=== PATIENT | female | born 1970 | race Caucasian/White ===

== ENCOUNTER 2016-08-11 10:19 | Observation (INO) ==
[2016-08-11 13:18] LABS: Basophils # (Auto) 0 K/mcL (0.0-0.3); Basophils % (Auto) 0.1 % (0.0-2.0); Eosinophils # (Auto) 0.1 K/mcL (0.0-0.7); Eosinophils % (Auto) 1.2 % (0.0-7.0); Granulocytes % (Auto) 60.9 % (38.0-78.0); Lymphocytes # (Auto) 2.4 K/mcL (1.5-4.8); Lymphocytes % (Auto) 30.2 % (15.5-49.0); Mean Cell Volume 67.2 fL (80.0-100.0); Mean Corpuscular Hemoglobin 17.4 pg (26.0-34.0); Monocytes # (Auto) 0.6 K/mcL (0.1-0.9); Monocytes % (Auto) 7.6 % (1.0-9.0); Platelet Count 241 K/mcL (140-440); RBC 3.86 M/mcL (4.00-5.20); Red Cell Distribution Width 22.6 % (11.5-14.5)
--- NOTE | 2016-08-11 13:35 | Ultrasound Report ---
CLINICAL INFORMATION: Left leg pain and swelling TECHNIQUE: Grayscale and color flow spectral imaging COMPARISON: None. FINDINGS: Left common femoral vein, superficial femoral vein are negative. Greater saphenous vein is negative. Acute deep venous thrombosis within the left popliteal vein and posterior tibial veins. Peroneal veins are patent. IMPRESSION: 1. Acute deep venous thrombosis within the popliteal vein and posterior tibial veins. 2. Negative left common femoral vein and superficial femoral vein. Interpreted and Authenticated by: Romeo Samuels 08/11/16
--- NOTE | 2016-08-11 13:58 | Emergency Department Note ---
Lower Extremity Injury HPI - General Chief Complaint: Extremity Injury, Lower Stated Complaint: L leg swelling Time Seen by Provider: 08/11/16 10:25 Source: patient Mode of arrival: ambulatory Limitations: no limitations - History of Present Illness HPI Narrative: 45-year-old the history of pain in the left lower leg present for the past 2 weeks. denies any shortness of breath. There is no chest pain. She has also been complaining of fatique over the past 6 months. Patient is afebrile - Related Data Home Medications Medication Instructions Recorded Confirmed No Known Home Meds [No Known Home 08/11/16 08/11/16 Meds] Allergies Allergy/AdvReac Type Severity Reaction Status Date / Time Penicillins [PENICILLINS] Allergy Mild RASH Verified 08/11/16 16:40 Sulfa (Sulfonamide Allergy Verified 08/11/16 16:59 Antibiotics) azithromycin AdvReac Mild DIARRHEA Verified 08/11/16 16:40 [From ZITHROMAX Z-BARBARA] Review of Systems All systems ED: reviewed and negative except as stated. Constitutional: Denies: fever Eyes: Denies: eye pain ENT ED: Denies: ear pain Cardiovascular: Denies: chest pain Respiratory: Denies: cough Gastrointestinal: Denies: abdominal pain Genitourinary: Denies: urgency Musculoskeletal: Reports: other (Pain to the left calf). Denies: back pain Integumentary: Denies: rash Neurological: Denies: headache Psychiatric: Denies: anxiety Endocrine: Denies: fatigue Hematological/Lymphatic: Denies: as per HPI Past Medical History - Past Medical History Medical history: Reports: non-contributory Surgical history ED: Reports: other (ovarian cysts, carpal tunnel) Family history: Reports: cancer (he of bone cancer, age 56) - Social History smoking status: Current every day smoker Packs per day: 1 Alcohol use: Reports: Occasionally Drug use: Reports: none Physical Exam - General Limitations: no limitations General appearance: alert - Head Head exam: atraumatic - Eye Eye exam: Present: normal appearance - ENT ENT exam: normal exam - Neck Neck exam: Present: normal inspection, full ROM - Chest Chest inspection: Present: normal inspection - Respiratory Respiratory exam: Present: normal lung sounds bilaterally - Cardiovascular Cardiovascular exam: Present: regular rate, normal rhythm - Abdominal Exam Abdominal exam: Present: soft. Absent: distention, tenderness - Extremities Exam Extremities exam: Present: normal inspection, full ROM - Expanded Lower Extremity Exam Hip/Pelvis exam: Present: normal inspection, full ROM Upper leg exam: Present: normal inspection, full ROM Knee exam: Present: normal inspection, full ROM Lower leg exam: Present: tenderness, Homans' sign (left) - Back Exam Back exam: Present: normal inspection, full ROM - Psychiatric Psychiatric exam: Present: normal affect, normal mood - Skin Skin exam: Present: warm, dry Course Vital Signs Temperature 97.7 F 08/11/16 10:21 Pulse Rate 102 H 08/11/16 10:21 Respiratory Rate 18 08/11/16 10:21 Blood Pressure 134/76 08/11/16 10:21 Pulse Oximetry (%) 100 08/11/16 10:21 Temperature 98.6 F 08/12/16 03:35 Pulse Rate 83 08/12/16 03:35 Respiratory Rate 16 08/12/16 03:35 Blood Pressure 91/60 08/12/16 03:35 Pulse Oximetry (%) 98 08/12/16 07:23 Extremity Injury, Lower - MDM Narrative Medical decision making narrative: positive for dvt, hb 6.8 Dr Moya called and consulted - Lab Data Result diagrams: 08/12/16 05:30 08/12/16 05:30 Lab Results 08/11/16 08/11/16 08/11/16 Range/Units 05:59 12:12 12:12 WBC 7.9 (4.5-11.0) K/mcL RBC 3.86 L (4.00-5.20) M/mcL Hgb 6.7 L* (12.0-15.0) g/dL Hct 25.9 L (36.0-48.0) % POC Hct (36.0-48.0) % MCV 67.2 L (80.0-100.0) fL MCH 17.4 L (26.0-34.0) pg MCHC 26.0 L (31.0-36.0) g/dL RDW 22.6 H (11.5-14.5) % Plt Count 241 (140-440) K/mcL MPV 8.7 (7.4-10.4) fL Gran % 60.9 (38.0-78.0) % Lymph % (Auto) 30.2 (15.5-49.0) % [place] % (Auto) 7.6 (1.0-9.0) % Eos % (Auto) 1.2 (0.0-7.0) % Baso % (Auto) 0.1 (0.0-2.0) % Gran # 4.8 (1.8-8.0) K/mcL Lymph # 2.4 (1.5-4.8) K/mcL [place] # 0.6 (0.1-0.9) K/mcL Eos # 0.1 (0.0-0.7) K/mcL Baso # 0 (0.0-0.3) K/mcL POC PT 12.2 sec POC INR 1.0 (0.9-1.2) POC Sodium (133-145) mmol/L POC Potassium (3.3-5.1) mmol/L POC Chloride (96-108) mmol/L POC Total CO2 (22-30) mmol/L POC BUN (6-20) mg/dl POC Creatinine (0.6-1.1) mg/dl POC Glucose (70-105) mg/dL POC WB Ioniz Calcium (1.16-1.32) mmol/L Iron (37-145) mcg/dl TIBC (228-428) ug/dl Unsat Iron Binding (112-346) mcg/dL Transferrin % Sat (15-50) % Urine HCG, Qual Negative <20 (<20 mIU/ml) 08/11/16 08/11/16 Range/Units 13:43 13:43 WBC (4.5-11.0) K/mcL RBC (4.00-5.20) M/mcL Hgb (12.0-15.0) g/dL Hct (36.0-48.0) % POC Hct 24.0 L (36.0-48.0) % MCV (80.0-100.0) fL MCH (26.0-34.0) pg MCHC (31.0-36.0) g/dL RDW (11.5-14.5) % Plt Count (140-440) K/mcL MPV (7.4-10.4) fL Gran % (38.0-78.0) % Lymph % (Auto) (15.5-49.0) % [place] % (Auto) (1.0-9.0) % Eos % (Auto) (0.0-7.0) % Baso % (Auto) (0.0-2.0) % Gran # (1.8-8.0) K/mcL Lymph # (1.5-4.8) K/mcL [place] # (0.1-0.9) K/mcL Eos # (0.0-0.7) K/mcL Baso # (0.0-0.3) K/mcL POC PT sec POC INR (0.9-1.2) POC Sodium 141 (133-145) mmol/L POC Potassium 3.8 (3.3-5.1) mmol/L POC Chloride 106 (96-108) mmol/L POC Total CO2 24 (22-30) mmol/L POC BUN 7 (6-20) mg/dl POC Creatinine 0.6 (0.6-1.1) mg/dl POC Glucose 80 (70-105) mg/dL POC WB Ioniz Calcium 1.18 (1.16-1.32) mmol/L Iron 15 L TNP (37-145) mcg/dl TIBC 421 (228-428) ug/dl Unsat Iron Binding 406 H (112-346) mcg/dL Transferrin % Sat 3 L (15-50) % Urine HCG, Qual (<20 mIU/ml) Disposition Clinical Impression: Anemia, DVT (deep venous thrombosis) Disposition: Xfer As Outpt/Obs ([facility]) Condition: Undetermined
[2016-08-11] MEDS ORDERED: 0.9 % SODIUM CHLORIDE 250 ML IV SCH ×3 (14:00→16:17)
[2016-08-11] MEDS ORDERED: WARFARIN 5 MG TABLET PO SCH (14:00)
[2016-08-11 14:16] LABS: Iron 15 mcg/dl (37-145); Transferrin % Saturation 3 % (15-50); Unsaturated Iron Binding 406 mcg/dL (112-346)
[2016-08-11] MEDS ORDERED: MAGNESIUM HYDROXIDE 30 ML ORAL.SUSP PO PRN (16:17)
[2016-08-11] MEDS ORDERED: ONDANSETRON ODT 4 MG TABLET SL PRN (16:17)
[2016-08-11] MEDS ORDERED: IRON DEXTRAN 1,000 MG in 0.9 % SODIUM CHLORIDE 500 ML IV ONE (16:17)
[2016-08-11] MEDS ORDERED: ACETAMINOPHEN 325 MG TABLET PO PRN (16:17)
[2016-08-11] MEDS ORDERED: NALOXONE HCL 0.4 MG/ML VIAL IV PRN (16:17)
[2016-08-11] MEDS ORDERED: DOCUSATE SODIUM 100 MG CAPSULE PO PRN (16:17)
[2016-08-11] MEDS ORDERED: CALCIUM CARBONATE 500 MG TAB.CHEW CHEWED PRN (16:17)
[2016-08-11] MEDS ORDERED: IRON DEXTRAN IV ONE (16:17)
[2016-08-11] MEDS ORDERED: SODIUM CHLORIDE 0.9% IV ONE (16:17)
--- NOTE | 2016-08-11 20:04 | Internal Med History&Physical ---
Medical - H&P: HPI Patient information: Note initiated : 08/11/16 at 7:56 pm Service Date, if different from initiated Date: [] Patient: Blanca Sterling 45 y/o F admitted on 08/11/16 for L leg swelling. Chief Complaint: [] History of present illness: Ms. Sterling is a 45 year old female he presents to the emergency room today complaining of pain in her left calf and knee area. She also reported significant ongoing fatigue for about a year now. In the ER sonogram was positive for a left leg DVT. However other labs also showed significant and unexplained anemia. This appears to be an iron deficiency anemia. the patient and her know that she is not feeling well for about a year. She says she was diagnosed with anemia one to 2 years ago and was treated with iron. She does not recall anyone ever checking her stool for blood or sending her to for any surgical workup.he does note that she has had heavy menses most of her life Her periods are now irregular, but they're still quite heavy. She does not currently take iron or any other vitamin supplements. She notes that her leg isn't bothering her for at least several days, and today she says it seemed like it was more swollen and tender to the touch and it felt warm. She has been feeling cold a lot, but is not quite sure if she has chills. She has noted upper respiratory symptoms recently which she blamed on a cold and/or a sinus infection. Her does note that she's had dyspnea with exertion for at least a month if not longer. Otherwise she's not had documented fever She has a mild headache today, but not prior to today. She denies Her ear symptoms. He denies sore throat or cough. She admits to snoring heavily and that her father has sleep apnea. She does continue to smoke, but has been trying to quit. She denies chest pain or palpitations, abdominal pain , nausea or vomiting or diarrhea or heartburn, or bright red blood per rectum. She does note some urinary urge incontinence. past medical history: Heavy menses, which are now irregular. urinary urge incontinence History of pneumonia in 1992 History of an ovarian cyst in the 1980s History of carpal tunnel surgery. Current medications: None. Allergies: Include penicillin, sulfa, azithromycin Family history: Mother of breast cancer and had a history of hypertension. Father had diabetes. Sister has hypertension. Paternal relatives have coronary disease. Next Social history: The patient has smoked on and off since the age of 20, and is currently smoking a half pack of cigarettes per day. She does not use alcohol or drugs. She has one grown child, and she lives with her . I believe she works at [employer]. She denies a sedentary lifestyle. She has not had a primary care physician for about 2 years now. - Medical - H&P: Meds Home Medications Medication Instructions Recorded Confirmed Type No Known Home Meds [No Known Home 08/11/16 08/11/16 History Meds] Allergies Allergy/AdvReac Type Severity Reaction Status Date / Time Penicillins [PENICILLINS] Allergy Mild RASH Verified 08/11/16 16:40 Sulfa (Sulfonamide Allergy Verified 08/11/16 16:59 Antibiotics) azithromycin AdvReac Mild DIARRHEA Verified 08/11/16 16:40 [From ZITHROMAX Z-BARBARA] Medical - H&P: Exam - Constitutional Vitals: Temp Pulse Resp BP Pulse Ox 98.3 F 104 H 16 102/58 97 08/11/16 15:48 08/11/16 15:48 08/11/16 15:48 08/11/16 15:48 08/11/16 15:48 Exam: the patient is a fatigued-appearing overweight white female She is tearful at times. Head: Normocephalic, atraumatic. Eyes: PERRLA, EOMI, anicteric. Ears: TMs and canals are clear. Pharynx: Is markedly crowded. She is missing many of her teeth. Neck: Supple, without lymphadenopathy, thyromegaly, bruits, JVD. Cardiac: Shows regular rate and rhythm, normal S1 and S2, without murmurs, rubs , gallops. Lungs: Are clear to auscultation, without rales, rhonchi, wheezes. abdomen: Is obese, but appears soft and nontender. The patient declined to let me lift her gown, sitting she has sores on her skin that she does not like people to see. Extremities:The left calf may be slightly larger than the right, but I don't see any definite edema or erythema. Her left upper calfand popliteal fossae area are a bit tender. Her Homans sign is probably positive. stool guaiac done in the emergency room was guaiac negative. neurologic:Is grossly nonfocal, although her mood is somewhat labile. Medical - H&P: Reslt - Labs CBC & Chem 7: 08/11/16 12:12 Labs: differential is essentially normal. Pro time is 12, with an INR of 1.0 chemistry panel is notable for normal electrolytes. TIBC is normal at 421, but transferrin saturation is low at 3%. Iron level is markedly low at 15. Urinalysis shows 250 of occult blood, with rare bacteria. lower extremity Doppler shows an acute DVT within the popliteal vein and posterior tibial veins with negative left common femoralvein Medical - H&P: A/P (1) Deep vein thrombosis (DVT) of distal vein of left lower extremity Current visit: Yes Status: Acute (2) Iron deficiency anemia Current visit: Yes Status: Acute (3) At risk for obstructive sleep apnea Current visit: Yes Status: Acute (4) Obesity, morbid, BMI 40.0-49.9 Current visit: Yes Status: Acute (5) Tobacco abuse Current visit: Yes Status: Acute - Narrative A/P Narrative: #1. Vascular. -patient presents with acute left lower extremity DVT. Etiology of this is uncertain, as she denies recent trauma or sedentary lifestyle. -The patient was extremely nervous about starting on blood thinners, so has been admitted to observation. She will be started on full dose subcutaneous Lovenox, as well as oral Coumadin. -We will check with her insurance tomorrow, to see if Eliquis might be covered. The patient would much prefer to have a drug but did not need close monitoring, and also would prefer not to have to use subcutaneous Lovenox injections. -She will need to stay on anticoagulation for at least 3 months. -She will need to be referred to a primary care physician, to follow this, as well as possibly to do further investigation of the cause of her DVT. #2. hematologic. Severe anemia. -this patient presents with significant anemia of uncertain cause. She does report that she was found to be anemic about a year ago, but cannot recall what the workup agrawal. She has never had upper or lower endoscopy or done stool cards to screen for occult blood. She does have a history of heavy menses, and hopefully this is the cause.-She will be transfused tonight, to get her hemoglobin up above 7, as she has been dyspneic lately. -She will also be given IV iron tomorrow. -She needs to start on a multivitamin as well as iron supplementation to support her bone marrow. -she does have a history of a previous ovarian cyst, and unexplained anemia. I will order a pelvic ultrasound to get a better look at her uterus and ovaries. She may need to follow-up with [facility] as well.-If stool guaiacs return to service inspector positive, she will need follow-up with GI as well. -She does have some hematuria tonight, but I suspect that is vaginal contamination. #3. CODE STATUS: Full code. #4.[facility]. Chronic irregular menses. She may need follow-up with [facility]. May be perimenopausal, or or perhaps have polycystic ovarian syndrome, or just have irregular menses due to obesity. 3 #5. Morbid obesity. she does report heavy snoring at night, and also that her father has sleep apnea. I think she is high risk for sleep apnea and this is certainly putting her at risk for other things. I encouraged her, when she gets a new primary care physician, to request a sleep study. #6. Tobacco abuse. -the patient reports that she is trying to quit. She declines a nicotine patch at this time. #7. Chronic fatigue. I suspect this is multifactorial, due to her significant anemia, and obesity. There may be a degree of depression as well. These things should be investigated further by her new primary care physician. this visit took approximately 70 minutes, to review the patient's tset results, review her case with the ER M.D., interview and examine her, and write orders. Medical - H&P: Qual - VTE Deep Vein Thrombosis/Pulmonary Embolism Present on Admission: Yes
[2016-08-11] MEDS: HYDROcodone/APAP 5/325MG TABLET PO PRN (20:20)
[2016-08-11] MEDS: ENOXAPARIN 120 MG/0.8 ML SYRINGE SQ SCH (20:22)
[2016-08-11] MEDS ORDERED: LORazepam 0.5 MG TABLET PO PRN (20:59)
[2016-08-11] MEDS ORDERED: ENOXAPARIN 40 MG/0.4 ML SYRINGE SQ SCH (21:00)
[2016-08-11] MEDS: 0.9 % SODIUM CHLORIDE 10 ML SYRINGE IV SCH (21:00)
[2016-08-12] MEDS: HYDROcodone/APAP 5/325MG TABLET PO PRN (05:07)
[2016-08-12] MEDS: 0.9 % SODIUM CHLORIDE 10 ML SYRINGE IV SCH ×2 (05:13→16:49)
[2016-08-12 08:49] LABS: Basophils # (Auto) 0.1 K/mcL (0.0-0.3); Basophils % (Auto) 1.1 % (0.0-2.0); Eosinophils # (Auto) 0.5 K/mcL (0.0-0.7); Eosinophils % (Auto) 6.5 % (0.0-7.0); Granulocytes % (Auto) 61.2 % (38.0-78.0); Lymphocytes # (Auto) 1.8 K/mcL (1.5-4.8); Lymphocytes % (Auto) 24.3 % (15.5-49.0); Mean Cell Volume 65.4 fL (80.0-100.0); Mean Corpuscular HGB Conc 29.4 g/dL (31.0-36.0); Mean Corpuscular Hemoglobin 19.2 pg (26.0-34.0); Monocytes # (Auto) 0.5 K/mcL (0.1-0.9); Monocytes % (Auto) 6.9 % (1.0-9.0); Platelet Count 214 K/mcL (140-440); Red Cell Distribution Width 22.9 % (11.5-14.5)
[2016-08-12] MEDS ORDERED: PRENATAL VIT/IRON FUMARATE/FA 1 TAB TABLET PO SCH (09:00)
[2016-08-12 09:17] LABS: ALT/SGPT 9 U/l (0-40); Albumin 3.4 gm/dL (3.2-5.2); Alkaline Phosphatase 67 U/L (39-117); Blood Urea Nitrogen 12 mg/dl (6-20)
[2016-08-12] MEDS ORDERED: IRON SUCROSE COMPLEX 400 MG in 0.9 % SODIUM CHLORIDE 250 ML IV ONE (10:00)
[2016-08-12] MEDS ORDERED: APIXABAN 5 MG TABLET PO SCH (12:04)
[2016-08-12] MEDS: ENOXAPARIN 120 MG/0.8 ML SYRINGE SQ SCH (14:02)
--- NOTE | 2016-08-12 15:12 | Discharge Summary ---
Medical - DS: Prov Patient information: Note initiated : 08/12/16 at 3:08 pm Service Date, if different from initiated Date: [] Patient: Blanca Sterling 45 y/o F admitted on 08/11/16 for L Leg Swelling/ Anemia, DVT. Chief Complaint: [] Date of admission: 08/11/16 15:48 Discharge date: 08/12/16 Primary care physician: [to establish care with Dr. Horne] Admitting clinician: Tabby Love Attending physician on discharge: Tabby Love Medical - DS: Meds - Discharge Medications Prescriptions: Apixaban [Eliquis] 5 mg PO BID #74 tablet HYDROcodone/APAP 5/325MG [[place] 5/325Mg] 1 tab PO Q8HP PRN #15 tablet PRN Reason: Pain Vit No.129/Iron/FA [ One Daily Tablet] 1 each PO DAILY #1 tablet Active and Home Medications: Home Medications No Known Home Meds [No Known Home Meds] 08/11/16 [History Confirmed 08/11/16 Last Taken Unknown] Active Medications Acetaminophen (Tylenol) 650 mg PO Q6HP PRN PRN Reason: PAIN/FEVER > 101 Acetaminophen/Hydrocodone Bitart ([place] 5/325mg) 1 tab PO Q4HP PRN PRN Reason: Pain Last Admin: 08/12/16 05:07 Dose: 1 tab Calcium Carbonate/Glycine (Tums) 1,000 mg CHEWED Q4HP PRN PRN Reason: Dyspepsia Docusate Sodium (Colace) 100 mg PO BID PRN PRN Reason: Constipation Lorazepam (Ativan) 0.5 mg PO HSP PRN PRN Reason: ANXIETY/SEDATION Magnesium Hydroxide (Milk Of Magnesia) 30 ml PO DAILYP PRN PRN Reason: Constipation Naloxone HCl (Narcan) 0.1 mg IV Q2MIN PRN PRN Reason: Opiate Reversal Ondansetron HCl (Zofran) 4 mg SL Q6HP PRN PRN Reason: Nausea And Vomiting Prenat Multivit/Refugio/Iron/Folic Ac ( Vitamin) 1 tab PO DAILY OBED Last Admin: 08/12/16 09:55 Dose: 1 tab Sodium Chloride (Saline Flush) 10 ml IV Q8 OBED Last Admin: 08/12/16 05:13 Dose: 10 ml Medical - DS: Hosp Hospital course: Mrs. Sterling is a 45 year old female who presented to the emergency roomyesterday complaining of left leg pain. She was diagnosed with a left distal DVT. She was also diagnosed with severe anemia, of uncertain cause. Iron levels were checked and are extremely low as well. She was admitted to observation, and loaded with Lovenox overnight. Today, case management checked with her insurance and then a couple of pharmacies, and it it appears that the patient's co-pay for taking Eliquis would be less than her co-pay for taking Lovenox plus Coumadin, so Eliquis was started today. The patient is much relieved about this, as she did not want to do the Lovenox injections or the frequent Coumadin monitoring. She will need to follow-up with Dr. Horne later this week, to recheck her hematocrit. -For her anemia, my best guess is that she has iron deficiency related to her heavy menses. However she does know that her menses are very irregular lately, so she is not sure how much she has been bleeding. she has had ongoing fatigue for about a year, and in the setting of unexplained anemia and a history of ovarian cyst, a pelvic ultrasound was ordered for today as well. She was also given IV iron load today. She should have follow-up stool guaiac checks as well. on exam today, the patient is calmer and a little more comfortable. Neck is supple without obvious lymphadenopathy or JVD. Cardiac exam shows regular rate and rhythm. Lungs are clear to auscultation. Abdomen is soft and nontender. Extremities continue to show mild enlargement of the left calf, but no erythema or warmth. #1. Vascular. -patient presents with acute left lower extremity DVT. Etiology of this is uncertain, as she denies recent trauma or sedentary lifestyle. -the patient was started on Eliquis today, and our understanding is through [facility] program at [employer] she can get her medication for a co-pay of $152 a month. She was given her first dose of Eliquis here, and should stay on 10 mg twice a day for one week, and then dropped to 5 mg twice a day. -She should have a follow-up CBC this or next week, to be sure her hemoglobin is stable. -She will need to stay on anticoagulation for at least 3 months. -She will need to be referred to a primary care physician, to follow this, as well as possibly to do further investigation of the cause of her DVT. #2. hematologic. Severe anemia. -this patient presents with significant anemia of uncertain cause. She does report that she was found to be anemic about a year ago, but cannot recall what the workup agrawal. She has never had upper or lower endoscopy or done stool cards to screen for occult blood. She does have a history of heavy menses, and hopefully this is the cause.- -she received 1 unit of packed red blood cells last night, and hemoglobin today is 7.9, with hematocrit 26.8 -he was given 400 mg of IV iron sucrose complex today. -advised her to stay on a vitamin at home, plus iron. -She does have some hematuria As well, but I suspect that is vaginal contamination.that may need to be followed up on again later as well. #3. CODE STATUS: Full code. #4.[employer]. Chronic irregular menses. pelvic ultrasound that came back just now is read as showing enlarged uterus at 13 x 10 x 12.7 cm, and the entire uterus appears abnormal. There is a large complex mass occupying the entire myometrium which was heterogeneous with hypoechoic and hyperechoic areas. There are some vascular areas. Findings may be secondary to a benign leiomyoma but malignancy cannot be excluded. i did discuss this briefly with SALES MARKET LEADER on callDrKehinde Henley, who says she can call his office tomorrow to make an appointment. He thinks he might be able to get her in towards the end of this week. #5. Morbid obesity. she does report heavy snoring at night, and also that her father has sleep apnea. I think she is high risk for sleep apnea and this is certainly putting her at risk for other things. I encouraged her, when she gets a new primary care physician, to request a sleep study. #6. Tobacco abuse. -the patient reports that she is trying to quit. She declines a nicotine patch at this time. #7. Chronic fatigue. I suspect this is multifactorial, due to her significant anemia, and obesity. There may be a degree of depression as well. These things should be investigated further by her new primary care physician. Discharge diagnosis: left lower extremity DVT, severe anemia, uterine mass. - Time Spent with Patient Total time spent providing and/or coordinating discharge services: Greater than 30 minutes Medical - DS: Exam - Constitutional Vitals: Vital Signs Temp Pulse Resp BP BP Pulse Ox 08/12/16 11:33 97.9 F 92 H 16 120/71 97 08/12/16 08:48 97.2 F L 87 18 117/79 97 08/12/16 07:23 98 08/12/16 03:35 98.6 F 83 16 91/60 98 08/11/16 23:49 98.0 F 86 16 106/65 93 08/11/16 18:28 98.0 F 96 H 16 105/65 97 Intake and Output 08/12/16 08/12/16 08/12/16 05:59 13:59 21:59 Intake Total 300 / 300 220 / 220 Output Total 50 / 50 Balance 300 / 300 170 / 170 Intake: Oral 300 / 300 220 / 220 Output: Void Amount 50 / 50 Other: Meal [employer] cup Lunch Percent of Meal Consumed 100% 100% Feeding Ability Independent # Voids 1 1 Medical - DS: Data Labs on day of discharge: Labs from last 24 hours 08/12/16 08/12/16 08/12/16 07:29 07:29 05:30 WBC 7.3 RBC 4.10 Hgb 7.9 L Hct 26.8 L MCV 65.4 L MCH 19.2 L MCHC 29.4 L RDW 22.9 H Plt Count 214 MPV 8.0 Gran % 61.2 Lymph % (Auto) 24.3 [place] % (Auto) 6.9 Eos % (Auto) 6.5 Baso % (Auto) 1.1 Gran # 4.5 Lymph # 1.8 [place] # 0.5 Eos # 0.5 Baso # 0.1 PT INR Sodium 139 Potassium 4.2 Chloride 103 Carbon Dioxide 23 Anion Gap 13.0 BUN 12 Creatinine 0.7 GFR Calculation 106 Glucose 93 Calcium 8.7 Total Bilirubin 0.3 AST 15 ALT 9 Alkaline Phosphatase 67 Total Protein 6.7 Albumin 3.4 Globulin 3.3 Albumin/Globulin Ratio 1.0 TSH 2.36 TNP 08/12/16 08/12/16 08/12/16 05:30 05:30 05:30 WBC TNP RBC TNP Hgb TNP Hct TNP MCV TNP MCH TNP MCHC TNP RDW TNP Plt Count TNP MPV TNP Gran % Lymph % (Auto) [place] % (Auto) Eos % (Auto) Baso % (Auto) Gran # Lymph # [place] # Eos # Baso # PT 14.9 H INR 1.1 Sodium TNP Potassium TNP Chloride TNP Carbon Dioxide TNP Anion Gap Not Reportable BUN TNP Creatinine TNP GFR Calculation Not Reportable Glucose TNP Calcium TNP Total Bilirubin TNP AST TNP ALT TNP Alkaline Phosphatase TNP Total Protein TNP Albumin TNP Globulin TNP Albumin/Globulin Ratio Not Reportable TSH 08/11/16 21:45 WBC RBC Hgb 7.6 L Hct 25.5 L MCV MCH MCHC RDW Plt Count MPV Gran % Lymph % (Auto) [place] % (Auto) Eos % (Auto) Baso % (Auto) Gran # Lymph # [place] # Eos # Baso # PT INR Sodium Potassium Chloride Carbon Dioxide Anion Gap BUN Creatinine GFR Calculation Glucose Calcium Total Bilirubin AST ALT Alkaline Phosphatase Total Protein Albumin Globulin Albumin/Globulin Ratio TSH iron level was low at 15, TIBC normal at 421, iron binding high at 406 , transferrin saturation low at 3% pelvic ultrasound: Urinalysis shows 250 of occult blood, with rare bacteria. lower extremity Doppler shows an acute DVT within the popliteal vein and posterior tibial veins with negative left common femoralvein Medical - DS: A/P - Patient/Caregiver Discharge Instructions Activity: increase activity as tolerated, other (consider staying off here feet and off work until Thursday, August 18, 2016.) Diet: Regular Diet Additional Instructions: #1.Dr Horne to follow pt after her hospital stay, but has not committed to accepting pt as her pcp. #2. Take Eliquis as directed, double dose for the first week, and then drop to 5 mg twice a day. #3. Follow-up with Dr. Horne this week, to recheck hemoglobin and hematocrit and to follow up on DVT. Increase activity as tolerated Consider staying off your feet and off work until 08/18/16 #4. Referral to Dr. Usama Henley, [employer], to f/u uterine mass. Call for appt this week. Prescriptions: Apixaban [Eliquis] 5 mg PO BID #74 tablet HYDROcodone/APAP 5/325MG [[place] 5/325Mg] 1 tab PO Q8HP PRN #15 tablet PRN Reason: Pain Vit No.129/Iron/FA [ One Daily Tablet] 1 each PO DAILY #1 tablet - Problem Maintenance (1) Deep vein thrombosis (DVT) of distal vein of left lower extremity Status: Acute (2) Iron deficiency anemia Status: Acute (3) At risk for obstructive sleep apnea Status: Acute (4) Obesity, morbid, BMI 40.0-49.9 Status: Chronic (5) Tobacco abuse Status: Chronic - Follow up Plan Follow up with: Mauro Horne MD [Physician] - 08/14/16 4:00 pm Usama Henley MD [Physician] - (Call on Thursday to schedule an AUTOMATIC SPINNING LATHE OPERATOR appointment. Tell his scheduling staff that Dr Vega wants to see you on . ) Disposition: Home, Self-Care Prognosis: Good Rehab Potential: Good Overall status at discharge: patient is progressing back to baseline Medical - DS: Qual - VTE Deep Vein Thrombosis/Pulmonary Embolism Present on Admission: Yes
--- NOTE | 2016-08-12 16:23 | Ultrasound Report ---
CLINICAL INFORMATION: Anemia TECHNIQUE: Transabdominal and endovaginal ultrasound. Grayscale and color flow spectral imaging COMPARISON: None. FINDINGS: Uterus is markedly enlarged. Uterus is anteverted. Uterus measures 13.2 x 10.7 x 12.7 cm. The entire uterus is abnormal. There is a large complex mass occupying virtually the entire myometrium. This is heterogeneous with hypoechoic and hyperechoic areas. There are some vascular areas. Findings may be secondary to benign leiomyoma but malignancy including uterine sarcoma is possible. MRI scan may be helpful for better definition of the anatomy. Endometrium is poorly visualized. Portions of the endometrium are seen and measures approximate 8.5 mm. No endometrial fluid. No fluid within the cervical canal. Ovaries are negative. Right ovary measures 3.4 x 2.2 x 3.4 cm. Left ovary measures 2.8 x 1.6 x 3.0 cm. No adnexal mass or fluid. IMPRESSION: 1. Enlarged uterus as above. Myometrium is replaced by a complex myometrial mass. Although this may be an atypical leiomyoma a uterine sarcoma, is not excluded. MRI scan recommended. 2. No adnexal abnormality. Interpreted and Authenticated by: Romeo Samuels 08/12/16
[2016-08-12] MEDS ORDERED: FLU VACC QS2016-17 36MOS UP/PF 60 MCG/0.5 ML SYRINGE IM ONE (17:30)
== END 2016-08-12 16:40 | disposition home or self-care (01) ==
LOC: ED 10:19 → MEDSUR 10:19
PROVIDERS: ADMIT Internal Medicine; ATTEND Internal Medicine